=== PATIENT | female | born 1975 ===

== ENCOUNTER 2018-12-12 00:26 | Day surgery (SDC) | payer OTHER ==
--- NOTE | 2018-12-12 10:08 | NUR ---
PT REFUSED PREMED SOLUMEDROL, REPORTED SHE DOESNT LIKE THE EFFECTS OF STERIODS. PO TYLENOL GIVEN. PT HAS NOT RECEIVED THIS MEDICATION BEFORE. IV INFUSING WITH BUMP RATE. WILL MONITOR PT CLOSELY
[2018-12-12] MEDS ORDERED: Vitamin B Comple1 EA PO (10:56)
[2018-12-12] MEDS ORDERED: ERGO400 PO (10:57)
[2018-12-12] MEDS ORDERED: FOLI1 PO (10:57)
[2018-12-12] MEDS ORDERED: SULF500A PO (10:58)
[2018-12-12] MEDS ORDERED: DICL75ER PO (11:01)
[2018-12-12] MEDS ORDERED: METTREX2.5 PO (11:02)
[2018-12-12] MEDS ORDERED: HYDSUL200 PO (11:03)
[2018-12-12] MEDS ORDERED: INFLECTRA100 MG IV (11:04)
== END 2018-12-12 11:53 | disposition home or self-care (01) ==
LOC: ATC 00:26
DX: M05.89 Other rheumatoid arthritis with rheumatoid factor of multiple sites (principal); M17.12 Unilateral primary osteoarthritis, left knee; Z79.899 Other long term (current) drug therapy
CPT/HCPCS: 96413; 96415; J2930; J7050; Q5103

== ENCOUNTER 2018-12-28 07:21 | Day surgery (SDC) | payer OTHER ==
[~2018-12-28 07:21] MED LIST: DICL75ER PO; ERGO400 PO; FOLI1 PO; HYDSUL200 PO; INFLECTRA100 MG IV; METTREX2.5 PO; SULF500A PO; Vitamin B Comple1 EA PO
--- NOTE | 2018-12-28 16:50 | NUR ---
Pt upset at time of discharge. She plans to speak with the "head nurse" because "the other nurse was rude." Pt states she doesn't want to talk about it, she just wants to "get out of here." IV dc'd intact. Apologized to her for her frustrations. VS taken, BP and HR elevated post infusion likely due to her frustation. No s/s of rxn noted to the medication at time of discharge.
== END 2018-12-28 16:34 | disposition home or self-care (01) ==
LOC: ATC 07:21
DX: M05.79 Rheumatoid arthritis with rheumatoid factor of multiple sites without organ or systems involvement (principal); M17.12 Unilateral primary osteoarthritis, left knee; Z79.899 Other long term (current) drug therapy
CPT/HCPCS: 96413; 96415; J7050; Q5103

== ENCOUNTER 2019-01-25 00:14 | Day surgery (SDC) | payer OTHER ==
--- NOTE | 2019-01-25 09:13 | NUR ---
PT REFUSES THE PRE-MEDS.
[2019-01-25] MEDS ORDERED: TAMS.4ER PO (09:28)
--- NOTE | 2019-01-25 09:29 | NUR ---
PT HAS KIDNEY STONES BUT NO ACTIVE INFECTION.
== END 2019-01-25 11:50 | disposition home or self-care (01) ==
LOC: ATC 00:14
DX: M05.79 Rheumatoid arthritis with rheumatoid factor of multiple sites without organ or systems involvement (principal); M17.12 Unilateral primary osteoarthritis, left knee
CPT/HCPCS: 96413; 96415; J7050; Q5103

== ENCOUNTER 2019-03-08 00:14 | Day surgery (SDC) | payer OTHER ==
[~2019-03-08 00:14] MED LIST changes: +TAMS.4ER PO
== END 2019-03-08 11:48 | disposition home or self-care (01) ==
LOC: ATC 00:14
DX: M05.79 Rheumatoid arthritis with rheumatoid factor of multiple sites without organ or systems involvement (principal)
CPT/HCPCS: 36415; 85025; 96413; 96415; A9270; J2930

== ENCOUNTER 2019-04-22 00:05 | Day surgery (SDC) | payer OTHER ==
--- NOTE | 2019-04-22 10:03 | NUR ---
PT DECLINES PRE MEDS.
== END 2019-04-22 12:00 | disposition home or self-care (01) ==
LOC: ATC 00:05
DX: M05.79 Rheumatoid arthritis with rheumatoid factor of multiple sites without organ or systems involvement (principal); M17.12 Unilateral primary osteoarthritis, left knee
CPT/HCPCS: 96413; 96415; J7050; Q5103